=== PATIENT | male | born 1955 | race Two or more races ===

== ENCOUNTER 2020-12-02 14:16 | Emergency (ER) | payer MEDICAID ==
[~2020-12-02] VITALS: Ht 182.9 cm; Wt 76.1 kg
--- NOTE | 2020-12-02 15:30 | NUR ---
AFTER LAB DRAWN PT AMBULATED TO BATHROOM WITHOUT ASSISTANCE TO PROVIDE URINE SAMPLE
[2020-12-02 15:31] LABS: BASOPHILS % (AUTO) 2 % (0-1); EOSINOPHILS % (AUTO) 5 % (1-7); LYMPHOCYTES % (AUTO) 26 % (22-44); MD NO; MEAN CORPUSCULAR HEMOGLOBIN 30.8 pg (27.5-34.5); MEAN CORPUSCULAR HGB CONC 33.5 g/dL (33.2-36.2); MONOCYTES % (AUTO) 9 % (2-9); NEUTROPHILS % (AUTO) 58 % (42-75); PLATELET COUNT 283 x10^3/uL (130-400); RED BLOOD COUNT 4.41 x10^6/uL (4.38-5.82); RED CELL DISTRIBUTION WIDTH 12.7 % (9.4-14.8)
[2020-12-02 15:41] LABS: ALANINE AMINOTRANSFERASE 25 U/L (12-78); ALBUMIN 3.4 g/dL (3.4-5.0); ANION GAP 6 mmol/L (5-15); CALCIUM 9.2 mg/dL (8.5-10.1); CHLORIDE 108 mmol/L (98-107); CREATININE 0.87 mg/dL (0.7-1.3)
[2020-12-02 15:43] LABS: ALKALINE PHOSPHATASE 125 U/L (45-117); BILIRUBIN,TOTAL 0.7 mg/dL (0.2-1.0); TOTAL PROTEIN 6.7 g/dL (6.4-8.2)
--- NOTE | 2020-12-02 15:45 | NUR ---
PT STATES HE HAD LEFT FLANK PAIN AND DIFFUSE ABDOMINAL PAIN YESTERDAY THAT HE ASSOCIATES WITH AFTER USING CRACK. PT STATES PAIN REMAINS ALTHOUGH NOT BAD AT THIS TIIME
[2020-12-02 15:55] LABS: MICROSCOPIC NOT IND
[2020-12-02 16:44] VITALS: BP 142/79
== END 2020-12-02 17:28 | disposition home or self-care (01) ==
LOC: ED 17:04
DX: R10.84 Generalized abdominal pain (principal); K59.00 Constipation, unspecified; F14.10 Cocaine abuse, uncomplicated; J45.909 Unspecified asthma, uncomplicated; Z87.891 Personal history of nicotine dependence
CPT/HCPCS: 36415; 74022; 80053; 81003; 83690; 85025; 99284

== ENCOUNTER 2021-01-05 18:04 | Inpatient (IN) | payer MEDICAID ==
[~2021-01-05] VITALS: Ht 182.9 cm; Wt 73.5 kg
[2021-01-05] MEDS ORDERED: SODIUM CHLORIDE FLUSH 10ML SYR IVF ONE (19:00)
--- NOTE | 2021-01-05 19:05 | NUR ---
RECEIVED REPORT ON PT, AND PT ARRIVED BACK FROM CT SCAN. PT A&OX4, NO ACUTE DISTRESS, AND VERY TALKATIVE. PLACED ON O2 SAT AND BP MONITOR.
[2021-01-05 19:15] LABS: BASOPHILS % (AUTO) 1 % (0-1); EOSINOPHILS % (AUTO) 5 % (1-7); LYMPHOCYTES % (AUTO) 23 % (22-44); MEAN CORPUSCULAR HEMOGLOBIN 29.8 pg (27.5-34.5); MEAN CORPUSCULAR HGB CONC 33.2 g/dL (33.2-36.2); MEAN PLATELET VOLUME 7.9 fL (7.4-10.4); MONOCYTES % (AUTO) 7 % (2-9); NEUTROPHILS % (AUTO) 65 % (42-75); PLATELET COUNT 382 x10^3/uL (130-400); RED CELL DISTRIBUTION WIDTH 13.2 % (9.4-14.8)
[2021-01-05 19:22] LABS: ALANINE AMINOTRANSFERASE 38 U/L (12-78); ALBUMIN 3.1 g/dL (3.4-5.0); ANION GAP 8 mmol/L (5-15); CALCIUM 9.2 mg/dL (8.5-10.1); CHLORIDE 108 mmol/L (98-107); CREATININE 1.08 mg/dL (0.7-1.3)
[2021-01-05 19:25] LABS: ALKALINE PHOSPHATASE 167 U/L (45-117); BILIRUBIN,TOTAL 0.9 mg/dL (0.2-1.0); MD NO; TOTAL PROTEIN 6.9 g/dL (6.4-8.2)
[2021-01-05 19:26] LABS: INTERNATIONAL NORMALIZED RATIO 1.01 (0.93-1.1); PROTHROMBIN TIME 10.8 Seconds (9.6-11.5)
--- NOTE | 2021-01-05 19:48 | NUR ---
PT WHEELED TO CT BY ASSESSMENT COUNSELOR. PT A&OX4 AND TALKATIVE. NO ACUTE DISTRESS.
[2021-01-05] MEDS ORDERED: OMNIPAQUE 350 MG/ML, 100ML BOTTLE ONE (20:01)
--- NOTE | 2021-01-05 20:44 | NUR ---
MD TO BEDSIDE TO SPEAK WITH PT AND UPDATED HIM TO RESULTS AND ADMISSION. PT A&OX4, CALM AND COOPERATIVE, LYING IN BED. NO ACUTE DISTRESS AT THIS TIME.
[2021-01-05] MEDS ORDERED: SODIUM CHLORIDE FLUSH 10ML SYR IVF PRN (21:00)
[2021-01-05 21:44] LABS: MICROSCOPIC NOT IND
--- NOTE | 2021-01-05 21:45 | NUR ---
ADMITTING MD TO [facility]
[2021-01-05] MEDS ORDERED: PROMETHAZINE 25 MG/ML, 1ML IM PRN (22:00)
[2021-01-05] MEDS ORDERED: ONDANSETRON ODT 4 MG PO PRN (22:00)
[2021-01-05] MEDS ORDERED: ACETAMINOPHEN 325 MG TABLET PO PRN (22:00)
[2021-01-05] MEDS ORDERED: hydrALAzine 20 MG/ML, 1ML IVPush PRN (22:00)
[2021-01-05] MEDS ORDERED: ONDANSETRON 2MG/ML, 2ML IVPush PRN (22:00)
[2021-01-05] MEDS ORDERED: morphine SULFATE 10 MG/ML, 1ML IVPush PRN (22:00)
[2021-01-05 22:23] VITALS: BP 108/70
[2021-01-05 22:39] VITALS: BP 108/70
[2021-01-05 22:49] LABS: FREE T4 (FREE THYROXINE) 1.02 ng/dL (0.76-1.46)
[2021-01-05] MEDS ORDERED: ALBUTEROL HFA 90 MCG/SPRAY INH PRN (23:00)
[2021-01-05] MEDS: GABAPENTIN 100 MG CAPSULE PO SCH (23:39)
[2021-01-05] MEDS: MONTELUKAST 10 MG TABLET PO SCH (23:39)
[2021-01-05] MEDS: PANTOPRAZOLE 40 MG IV IVPush SCH (23:39)
[2021-01-05] MEDS: SODIUM CHLORIDE 0.9% 1,000 ML IV SCH (23:40)
[2021-01-05] MEDS ORDERED: LACT10SO24 PO (23:42)
[2021-01-05] MEDS ORDERED: LORA10TA41 PO (23:42)
[2021-01-05] MEDS ORDERED: TIOT18CA INH (23:42)
[2021-01-05] MEDS ORDERED: MELO15TA24 PO (23:42)
[2021-01-05] MEDS ORDERED: FLUT200B INH (23:42)
[2021-01-05] MEDS ORDERED: MONT10TA17 PO (23:42)
[2021-01-05] MEDS ORDERED: GABA300C PO (23:42)
[2021-01-05] MEDS ORDERED: BUDE10.2 INH (23:53)
[2021-01-06 00:29] VITALS: BP 123/83
[2021-01-06 06:02] LABS: BASOPHILS % (AUTO) 2 % (0-1); EOSINOPHILS % (AUTO) 8 % (1-7); LYMPHOCYTES % (AUTO) 26 % (22-44); MEAN CORPUSCULAR HEMOGLOBIN 29.6 pg (27.5-34.5); MEAN CORPUSCULAR HGB CONC 32.8 g/dL (33.2-36.2); MEAN PLATELET VOLUME 8.2 fL (7.4-10.4); MONOCYTES % (AUTO) 9 % (2-9); NEUTROPHILS % (AUTO) 56 % (42-75); PLATELET COUNT 335 x10^3/uL (130-400); RED BLOOD COUNT 3.41 x10^6/uL (4.38-5.82); RED CELL DISTRIBUTION WIDTH 13.6 % (9.4-14.8)
[2021-01-06 06:11] LABS: ALBUMIN 2.9 g/dL (3.4-5.0); ANION GAP 3 mmol/L (5-15); CALCIUM 8.6 mg/dL (8.5-10.1); CHLORIDE 109 mmol/L (98-107)
[2021-01-06 06:14] LABS: ALANINE AMINOTRANSFERASE 34 U/L (12-78); ALKALINE PHOSPHATASE 147 U/L (45-117); BILIRUBIN,TOTAL 0.6 mg/dL (0.2-1.0); CHOL/HDL RATIO 4.1; CHOLESTEROL, TOTAL 160 mg/dL (140-239); CREATININE 0.97 mg/dL (0.7-1.3); HDL CHOL % 24 % (26-37); HDL CHOLESTEROL (DIRECT) 39 mg/dL (40-60); LDL CHOLESTEROL,CALCULATED 100 mg/dL (54-169); LDL/HDL RATIO 2.6 (0.5-3.0); TOTAL PROTEIN 6.3 g/dL (6.4-8.2); TRIGLYCERIDES 103 mg/dL (50-200); VLDL CHOLESTEROL 21 mg/dL (0-25)
[2021-01-06 06:21] LABS: MD NO
[2021-01-06 06:52] VITALS: BP 121/85
[2021-01-06] MEDS: FLUTICASONE/VILANTEROL 100-25MCG/INH INH SCH (07:45)
[2021-01-06] MEDS: TIOTROPIUM BROMIDE 18 MCG/INH INH SCH (07:45)
[2021-01-06] MEDS: GABAPENTIN 100 MG CAPSULE PO SCH ×3 (08:10→21:08)
[2021-01-06] MEDS: PANTOPRAZOLE 40 MG IV IVPush SCH (09:42)
[2021-01-06] MEDS: SODIUM CHLORIDE 0.9% 1,000 ML IV SCH (09:42)
[2021-01-06] MEDS: PANTOPRAZOLE 80 MG in SODIUM CHLORIDE 0.9% 100 ML IV SCH ×2 (10:41→21:08)
[2021-01-06 12:09] LABS: AMPHETAMINE SCREEN, URINE Negative (Negative); BARBITURATE SCREEN, URINE Negative (Negative); BENZODIAZEPINE SCREEN, URINE Negative (Negative); CANNABINOID SCREEN, URINE Negative (Negative); COCAINE SCREEN, URINE Negative (Negative); METHADONE SCREEN, URINE Negative (Negative); OPIATE SCREEN, URINE Negative (Negative)
[2021-01-06 14:11] VITALS: BP 113/73
[2021-01-06] MEDS: OXYcodone IR 5MG TABLET PO PRN (14:19)
[2021-01-06 19:58] VITALS: BP 115/77
[2021-01-06] MEDS: DOCUSATE 100 MG CAPSULE PO PRN (21:08)
[2021-01-06] MEDS: MONTELUKAST 10 MG TABLET PO SCH (21:08)
[2021-01-07 01:48] VITALS: BP 118/77
[2021-01-07 05:43] LABS: BASOPHILS % (AUTO) 2 % (0-1); EOSINOPHILS % (AUTO) 8 % (1-7); LYMPHOCYTES % (AUTO) 21 % (22-44); MD NO; MEAN CORPUSCULAR HEMOGLOBIN 29.6 pg (27.5-34.5); MEAN PLATELET VOLUME 8.3 fL (7.4-10.4); MONOCYTES % (AUTO) 8 % (2-9); NEUTROPHILS % (AUTO) 61 % (42-75); PLATELET COUNT 370 x10^3/uL (130-400); RED BLOOD COUNT 3.72 x10^6/uL (4.38-5.82); RED CELL DISTRIBUTION WIDTH 13.3 % (9.4-14.8)
[2021-01-07] MEDS: PANTOPRAZOLE 80 MG in SODIUM CHLORIDE 0.9% 100 ML IV SCH ×2 (06:30→16:45)
[2021-01-07 07:33] VITALS: BP 110/65
[2021-01-07] MEDS: IRON SUCROSE COMPLEX 100MG/5ML IV SCH (08:32)
[2021-01-07] MEDS: GABAPENTIN 100 MG CAPSULE PO SCH ×3 (08:32→22:07)
[2021-01-07] MEDS: TIOTROPIUM BROMIDE 18 MCG/INH INH SCH (10:00)
[2021-01-07] MEDS: FLUTICASONE/VILANTEROL 100-25MCG/INH INH SCH (10:05)
[2021-01-07] MEDS: DOCUSATE 100 MG CAPSULE PO PRN ×2 (11:21→22:06)
[2021-01-07] MEDS ORDERED: POLYETHYLENE GLYCOL 17 GM PACKET PO ONE (11:30)
[2021-01-07 13:19] VITALS: BP 123/75
[2021-01-07 16:58] LABS: OCCULT BLOOD POSITIVE (NEGATIVE)
[2021-01-07 21:01] VITALS: BP 118/74
[2021-01-07] MEDS: OXYcodone IR 5MG TABLET PO PRN (22:07)
[2021-01-07] MEDS: MONTELUKAST 10 MG TABLET PO SCH (22:07)
[2021-01-08 00:31] VITALS: BP 123/69
[2021-01-08] MEDS: PANTOPRAZOLE 80 MG in SODIUM CHLORIDE 0.9% 100 ML IV SCH ×3 (02:23→22:43)
[2021-01-08] MEDS: OXYcodone IR 5MG TABLET PO PRN (02:23)
[2021-01-08 07:06] VITALS: BP 98/57
[2021-01-08] MEDS: FLUTICASONE/VILANTEROL 100-25MCG/INH INH SCH (07:44)
[2021-01-08] MEDS: TIOTROPIUM BROMIDE 18 MCG/INH INH SCH (07:44)
[2021-01-08] MEDS: GABAPENTIN 100 MG CAPSULE PO SCH ×3 (08:57→19:47)
[2021-01-08] MEDS: IRON SUCROSE COMPLEX 100MG/5ML IV SCH (08:57)
[2021-01-08] MEDS ORDERED: POLYETHYLENE GLYCOL 17 GM PACKET PO ONE ×2 (13:00→20:30)
[2021-01-08 13:38] VITALS: BP 104/71
[2021-01-08] MEDS: DOCUSATE 100 MG CAPSULE PO PRN ×2 (18:38→19:50)
[2021-01-08 19:19] VITALS: BP 119/79
[2021-01-08] MEDS: MONTELUKAST 10 MG TABLET PO SCH (19:47)
[2021-01-08 20:43] LABS: OCCULT BLOOD POSITIVE (NEGATIVE)
[2021-01-09 00:12] VITALS: BP 118/80
[2021-01-09] MEDS ORDERED: MELATONIN 5 MG TABLET PO PRN (00:30)
[2021-01-09 05:52] LABS: BASOPHILS % (AUTO) 1 % (0-1); EOSINOPHILS % (AUTO) 8 % (1-7); LYMPHOCYTES % (AUTO) 25 % (22-44); MEAN CORPUSCULAR HEMOGLOBIN 29.4 pg (27.5-34.5); MEAN PLATELET VOLUME 8.1 fL (7.4-10.4); MONOCYTES % (AUTO) 9 % (2-9); NEUTROPHILS % (AUTO) 57 % (42-75); PLATELET COUNT 386 x10^3/uL (130-400); RED BLOOD COUNT 3.76 x10^6/uL (4.38-5.82); RED CELL DISTRIBUTION WIDTH 13.1 % (9.4-14.8)
[2021-01-09 05:58] LABS: MD NO
[2021-01-09 06:24] VITALS: BP 100/62
[2021-01-09] MEDS: IRON SUCROSE COMPLEX 100MG/5ML IV SCH (08:05)
[2021-01-09] MEDS: GABAPENTIN 100 MG CAPSULE PO SCH ×3 (08:05→20:15)
[2021-01-09] MEDS: FLUTICASONE/VILANTEROL 100-25MCG/INH INH SCH (08:05)
[2021-01-09] MEDS: TIOTROPIUM BROMIDE 18 MCG/INH INH SCH (08:05)
[2021-01-09] MEDS ORDERED: CHLORHEXIDINE 15 ML UDC ONE (09:50)
[2021-01-09] MEDS ORDERED: CHLORHEXIDINE 15 ML UDC PO ONE (10:00)
[2021-01-09] MEDS ORDERED: PROPOFOL 50 ML ONE (10:16)
[2021-01-09] MEDS ORDERED: MEPERIDINE/PF 25MG/0.5ML IVPush PRN (10:30)
[2021-01-09] MEDS ORDERED: ONDANSETRON 2MG/ML, 2ML IVPush PRN (10:30)
[2021-01-09] MEDS ORDERED: FENTANYL PF 100 MCG/2ML IV PRN (10:30)
[2021-01-09] MEDS ORDERED: OXYcodone 5 MG/5 ML ORAL.SOL UDC PO PRN (10:30)
[2021-01-09] MEDS ORDERED: PROMETHAZINE 25 MG SUPP PR PRN (10:30)
[2021-01-09] MEDS ORDERED: LORazepam 2 MG/ML, 1ML IVPush PRN (10:30)
[2021-01-09] MEDS ORDERED: PROMETHAZINE 25 MG/ML, 1ML IVPush PRN (10:30)
[2021-01-09] MEDS ORDERED: ACETAMINOPHEN 325 MG TABLET PO PRN (10:30)
[2021-01-09 12:10] VITALS: BP 115/69
[2021-01-09] MEDS: PANTOPRAZOLE 80 MG in SODIUM CHLORIDE 0.9% 100 ML IV SCH (12:22)
[2021-01-09 12:26] VITALS: BP 107/73
[2021-01-09 18:29] VITALS: BP 125/89
[2021-01-09] MEDS: MONTELUKAST 10 MG TABLET PO SCH (20:15)
[2021-01-09] MEDS: DOCUSATE 100 MG CAPSULE PO PRN (20:18)
[2021-01-09] MEDS: OXYcodone IR 5MG TABLET PO PRN ×2 (21:16→21:44)
[2021-01-10 00:32] VITALS: BP 124/76
[2021-01-10] MEDS: PANTOPRAZOLE 80 MG in SODIUM CHLORIDE 0.9% 100 ML IV SCH ×2 (01:51→11:20)
[2021-01-10 06:45] VITALS: BP 106/75
[2021-01-10] MEDS: FLUTICASONE/VILANTEROL 100-25MCG/INH INH SCH (07:58)
[2021-01-10] MEDS: TIOTROPIUM BROMIDE 18 MCG/INH INH SCH (07:58)
[2021-01-10] MEDS: IRON SUCROSE COMPLEX 100MG/5ML IV SCH (09:15)
[2021-01-10] MEDS: GABAPENTIN 100 MG CAPSULE PO SCH (09:15)
[2021-01-10] MEDS ORDERED: HEPARIN 1,000 UNITS/ML, 10ML ONE (10:08)
[2021-01-10] MEDS ORDERED: OMEP20TA62 PO ×5 (10:55→14:18)
[2021-01-10] MEDS ORDERED: OXYC5TAB98 PO ×3 (11:02→14:18)
== END 2021-01-10 12:47 | disposition home or self-care (01) | DRG 378 ==
LOC: ED 19:46 → EDIP 20:37 → 3N 22:18 → DCLOUNGE 01-10 12:30
PROVIDERS: ADMIT Internal Medicine; ATTEND Hospitalist
PROC: 0DB68ZX Excision of Stomach, Via Natural or Artificial Opening Endoscopic, Diagnostic (ICD-10-PCS; principal; 2021-01-09 10:45)
DX: K25.4 Chronic or unspecified gastric ulcer with hemorrhage (principal); D62 Acute posthemorrhagic anemia; Z20.822 Contact with and (suspected) exposure to COVID-19; K31.9 Disease of stomach and duodenum, unspecified; F14.10 Cocaine abuse, uncomplicated; G89.29 Other chronic pain; I45.10 Unspecified right bundle-branch block; J44.9 Chronic obstructive pulmonary disease, unspecified; K59.00 Constipation, unspecified; Z80.0 Family history of malignant neoplasm of digestive organs; Z85.038 Personal history of other malignant neoplasm of large intestine; Z87.19 Personal history of other diseases of the digestive system; Z87.891 Personal history of nicotine dependence
CPT/HCPCS: 36415; 74022; 74177; 80053; 80061; 80307; 81003; 82272; 82378; 82728; 83036; 83540; 83550; 83735; 84100; 84439; 84443; 85025; 85610; 85730; 86301; 86850; 86870; 86900; 86922; 86923; 87635; 88305; 88341; 88342; 93005; 93306; 94640; 99285; G0378; J1644; J1756; J2704; Q0162; Q9967; C9113; J2270; J7030

== ENCOUNTER 2021-02-15 12:49 | Inpatient (IN) | payer MEDICAID ==
[~2021-02-15] VITALS: Ht 182.9 cm; Wt 71.5 kg
[~2021-02-15 12:49] MED LIST: BUDE10.2 INH; FLUT200B INH; GABA300C PO; LACT10SO24 PO; LORA10TA41 PO; MELO15TA24 PO; MONT10TA17 PO; OMEP20TA62 PO; OXYC5TAB98 PO; TIOT18CA INH
[2021-02-15] MEDS ORDERED: ONDANSETRON 2MG/ML, 2ML IVPush ONE (13:30)
[2021-02-15] MEDS ORDERED: HYDROmorphone 1 MG/ML, 1ML INJ IV ONE (13:30)
[2021-02-15] MEDS ORDERED: SODIUM CHLORIDE 0.9% 1,000ML IVBOLUS ONE (13:30)
[2021-02-15 13:32] LABS: BASOPHILS % (AUTO) 1 % (0-1); EOSINOPHILS % (AUTO) 3 % (1-7); LYMPHOCYTES % (AUTO) 16 % (22-44); MEAN CORPUSCULAR HEMOGLOBIN 25.7 pg (27.5-34.5); MEAN CORPUSCULAR HGB CONC 32.4 g/dL (33.2-36.2); MEAN PLATELET VOLUME 7.2 fL (7.4-10.4); MONOCYTES % (AUTO) 7 % (2-9); NEUTROPHILS % (AUTO) 73 % (42-75); PLATELET COUNT 714 x10^3/uL (130-400); RED BLOOD COUNT 3.81 x10^6/uL (4.38-5.82); RED CELL DISTRIBUTION WIDTH 18.2 % (9.4-14.8)
[2021-02-15] MEDS ORDERED: ONDANSETRON 2MG/ML, 2ML ONE (13:33)
[2021-02-15] MEDS ORDERED: HYDROmorphone 1 MG/ML, 1ML INJ ONE (13:33)
[2021-02-15 13:42] LABS: ALANINE AMINOTRANSFERASE 20 U/L (12-78); ALBUMIN 2.8 g/dL (3.4-5.0); ANION GAP 6 mmol/L (5-15); CALCIUM 9.1 mg/dL (8.5-10.1); CHLORIDE 107 mmol/L (98-107)
[2021-02-15 13:45] LABS: ALKALINE PHOSPHATASE 102 U/L (45-117); BILIRUBIN,TOTAL 0.4 mg/dL (0.2-1.0); CREATININE 1.02 mg/dL (0.7-1.3); TOTAL PROTEIN 7.3 g/dL (6.4-8.2)
--- NOTE | 2021-02-15 13:51 | NUR ---
pt to ct
[2021-02-15] MEDS ORDERED: OMNIPAQUE 350 MG/ML, 100ML BOTTLE ONE (14:04)
[2021-02-15 14:25] LABS: MD MORPH REVIEW ONLY
[2021-02-15 14:26] LABS: ANISOCYTOSIS 1+
[2021-02-15 14:27] LABS: MICROCYTOSIS 1+
[2021-02-15 14:28] LABS: <PLATELET ESTIMATE> INCREASED; <PLT MORPHOLOGY> NORMAL PLT MORPH; HYPOCHROMIA 1+
--- NOTE | 2021-02-15 14:37 | NUR ---
PT LAYING ON GURNEY, WATCHING TV AND ON HIS PHONE. CALL LIGHT WITHIN REACH. NADN/VSS. NO NEEDS AT THIS TIME
[2021-02-15] MEDS ORDERED: ONDANSETRON 2MG/ML, 2ML IVPush PRN (15:00)
[2021-02-15] MEDS ORDERED: HYDROmorphone PCA 30 MG/30 ML IV PRN (15:00)
[2021-02-15] MEDS ORDERED: METOCLOPRAMIDE 5 MG/ML, 2ML IVPush PRN (15:00)
[2021-02-15] MEDS: LACTATED RINGERS 1,000 ML IV SCH (15:00)
--- NOTE | 2021-02-15 15:16 | NUR ---
PALLIATIVE CARE AT
--- NOTE | 2021-02-15 15:22 | NUR ---
Pt to be admitted to ONCOLOGY, room 441. Report called to
[2021-02-15 15:59] VITALS: BP 118/65
[2021-02-15] MEDS ORDERED: PANTOPRAZOLE 40 MG IV IVPush SCH (16:00)
[2021-02-15 17:08] LABS: MICROSCOPIC NOT IND
[2021-02-15 18:45] VITALS: BP 105/73
[2021-02-16] MEDS: LACTATED RINGERS 1,000 ML IV SCH ×2 (00:13→10:21)
[2021-02-16 00:16] VITALS: BP 110/74
[2021-02-16 05:07] LABS: BASOPHILS % (AUTO) 2 % (0-1); EOSINOPHILS % (AUTO) 4 % (1-7); LYMPHOCYTES % (AUTO) 21 % (22-44); MD NO; MEAN CORPUSCULAR HEMOGLOBIN 25.1 pg (27.5-34.5); MEAN CORPUSCULAR HGB CONC 31.7 g/dL (33.2-36.2); MONOCYTES % (AUTO) 10 % (2-9); NEUTROPHILS % (AUTO) 64 % (42-75); PLATELET COUNT 657 x10^3/uL (130-400); RED BLOOD COUNT 3.52 x10^6/uL (4.38-5.82); RED CELL DISTRIBUTION WIDTH 18.2 % (9.4-14.8)
[2021-02-16 05:20] LABS: ALBUMIN 2.5 g/dL (3.4-5.0); ANION GAP 6 mmol/L (5-15); CHLORIDE 106 mmol/L (98-107)
[2021-02-16 05:27] LABS: ALANINE AMINOTRANSFERASE 18 U/L (12-78); ALKALINE PHOSPHATASE 98 U/L (45-117); BILIRUBIN,TOTAL 0.5 mg/dL (0.2-1.0); PREALBUMIN 10.5 mg/dL (20.0-40.0); TOTAL PROTEIN 6.5 g/dL (6.4-8.2)
[2021-02-16 07:58] VITALS: BP 110/71
[2021-02-16] MEDS ORDERED: FENTANYL 25 MCG PATCH TD SCH (11:30)
[2021-02-16 12:50] VITALS: BP 103/67
[2021-02-16] MEDS: PANTOPRAZOLE 40MG TABLET PO SCH (16:45)
[2021-02-16 18:51] VITALS: BP 115/81
[2021-02-16] MEDS: ACETAMINOPHEN 325 MG TABLET PO PRN (19:01)
[2021-02-16] MEDS: OXYcodone 5 MG/5 ML ORAL.SOL UDC PO PRN ×2 (19:01→22:37)
[2021-02-17 00:25] VITALS: BP 115/73
[2021-02-17] MEDS: ACETAMINOPHEN 325 MG TABLET PO PRN ×2 (00:47→09:55)
[2021-02-17] MEDS: OXYcodone 5 MG/5 ML ORAL.SOL UDC PO PRN ×2 (01:45→04:54)
[2021-02-17] MEDS: PANTOPRAZOLE 40MG TABLET PO SCH (04:54)
[2021-02-17 08:06] VITALS: BP 118/52
[2021-02-17] MEDS ORDERED: OXYcodone 5 MG/5 ML ORAL.SOL UDC PO PRN (08:30)
[2021-02-17 12:19] VITALS: BP 121/81
[2021-02-17] MEDS ORDERED: OXYC5TAB98 PO (12:52)
[2021-02-17] MEDS ORDERED: FENT1PAT75 TD (12:52)
== END 2021-02-17 14:15 | disposition home or self-care (01) | DRG 947 ==
LOC: ED 14:20 → SUATTDRO 14:47 → 4NW 14:49 → DCLOUNGE 02-17 14:11
PROVIDERS: ADMIT Internal Medicine; ATTEND Internal Medicine
DX: G89.3 Neoplasm related pain (acute) (chronic) (principal); E43 Unspecified severe protein-calorie malnutrition; C16.9 Malignant neoplasm of stomach, unspecified; J45.909 Unspecified asthma, uncomplicated; Z87.891 Personal history of nicotine dependence
CPT/HCPCS: 36415; 74177; 80053; 81003; 83690; 84134; 85025; 96361; 96374; 96375; 99285; G0378; J1170; J2405; Q9967; C9113; J7030; J7120

== ENCOUNTER 2021-02-18 22:26 | Emergency (ER) | payer MEDICAID ==
[~2021-02-18] VITALS: Ht 177.8 cm; Wt 71.2 kg
[~2021-02-18 22:26] MED LIST changes: +FENT1PAT75 TD
[2021-02-18 22:35] VITALS: BP 116/60
[2021-02-18] MEDS ORDERED: FENTANYL 25 MCG PATCH TD SCH (23:00)
== END 2021-02-18 23:47 | disposition home or self-care (01) ==
LOC: ED 23:00
DX: R10.84 Generalized abdominal pain (principal); Z76.0 Encounter for issue of repeat prescription; J45.909 Unspecified asthma, uncomplicated; Z87.891 Personal history of nicotine dependence
CPT/HCPCS: 99281